=== PATIENT | female | born 1990 | race Caucasian/White ===

== ENCOUNTER 2018-06-11 06:58 | Emergency (ER) | payer OTHER ==
[~2018-06-11] VITALS: Ht 167.6 cm; Wt 49.9 kg
[~2018-06-11 06:58] MED LIST: TRAZ50 PO
[2018-06-11] MEDS ORDERED: REXULTI1 MG PO (07:20)
[2018-06-11] MEDS ORDERED: PRAZ1 PO (07:21)
[2018-06-11] MEDS ORDERED: PRAZ2 PO (07:21)
[2018-06-11] MEDS ORDERED: Robaxin500 MG PO (07:50)
[2018-06-11] MEDS ORDERED: IBUP600 PO (07:50)
[2018-06-11] MEDS ORDERED: LIDO700A20 TOP (07:50)
[2018-06-11] MEDS ORDERED: ACET500 PO (07:50)
== END 2018-06-11 07:57 | disposition home or self-care (01) ==
LOC: ER 06:58
DX: R07.81 Pleurodynia (principal); Z88.2 Allergy status to sulfonamides; W22.8XXA Striking against or struck by other objects, initial encounter
CPT/HCPCS: 71046; 99283-25

== ENCOUNTER 2018-08-05 15:17 | Day surgery (SDC) | payer OTHER ==
[~2018-08-05 15:17] MED LIST changes: +ACET500 PO; +IBUP600 PO; +LIDO700A20 TOP; +PRAZ1 PO; +PRAZ2 PO; +REXULTI1 MG PO; +Robaxin500 MG PO
== END 2018-08-05 22:59 | disposition home or self-care (01) ==
LOC: ATC 15:17
DX: K04.7 Periapical abscess without sinus (principal); Z88.0 Allergy status to penicillin; Z88.2 Allergy status to sulfonamides
CPT/HCPCS: 96365

== ENCOUNTER 2018-08-06 00:22 | Day surgery (SDC) | payer OTHER | END 2018-08-06 16:40 | disposition home or self-care (01) | LOC: ATC 00:22 | DX: K04.7 Periapical abscess without sinus (principal); Z88.0 Allergy status to penicillin | CPT/HCPCS: 96365 ==

== ENCOUNTER 2018-08-07 07:45 | Day surgery (SDC) | payer OTHER | END 2018-08-07 16:51 | disposition home or self-care (01) | LOC: ATC 07:45 | DX: K04.7 Periapical abscess without sinus (principal); F32.9 Major depressive disorder, single episode, unspecified; Z88.0 Allergy status to penicillin; Z79.899 Other long term (current) drug therapy; Z88.2 Allergy status to sulfonamides | CPT/HCPCS: 96365 ==

== ENCOUNTER 2018-08-08 10:01 | Day surgery (SDC) | payer OTHER | END 2018-08-08 10:33 | disposition home or self-care (01) | LOC: ATC 10:01 | DX: K04.7 Periapical abscess without sinus (principal); Z88.0 Allergy status to penicillin; Z79.899 Other long term (current) drug therapy | CPT/HCPCS: 96365 ==

== ENCOUNTER 2019-04-22 20:10 | Emergency (ER) | payer OTHER ==
[~2019-04-22] VITALS: Ht 167.6 cm; Wt 54.4 kg
[2019-04-22 22:51] LABS: BASOPHILS ABSOLUTE AUTO 0.04 K/mm3 (0.00-0.23); BASOPHILS PERCENT AUTO 0 % (0-2); EOSINOPHILS ABSOLUTE AUTO 0.05 K/mm3 (0.00-0.68); EOSINOPHILS PERCENT AUTO 1 % (0-6); Hematocrit 41.8 % (33.0-51.0); Hemoglobin 13.8 g/dL (11.5-16.0); IMMATURE GRAN ABSOLUTE AUTO 0.03 K/mm3 (0.00-0.10); IMMATURE GRAN PERCENT AUTO 0 % (0-1); LYMPHOCYTES ABSOLUTE AUTO 2.91 K/mm3 (0.84-5.20); LYMPHOCYTES PERCENT AUTO 27 % (21-46); MONOCYTES ABSOLUTE AUTO 0.67 K/mm3 (0.16-1.47); MONOCYTES PERCENT AUTO 6 % (4-13); Mean Corpuscular HGB 30.7 pg (26.0-34.0); Mean Corpuscular Volume 93 fL (80-100); Mean Platelet Volume 8.7 fL (9.1-12.4); NEUTROPHILS ABSOLUTE AUTO 6.99 K/mm3 (1.96-9.15); NEUTROPHILS PERCENT AUTO 65 % (41-73); Platelet Count 313 K/mm3 (150-400); RDW Coefficient Variation 12.5 % (11.7-14.2); White Blood Cell Count 10.69 K/mm3 (4.00-11.30)
[2019-04-22 23:13] LABS: Alanine Aminotransfer (ALT/SGP 36 U/L (12-78); Albumin, Blood 3.9 g/dL (3.4-5.0); Alk Phos 94 U/L (50-136); Anion Gap 4 mmol/L (6-16); Aspartate Aminotrans (AST/SGOT 25 U/L (12-37); Bilirubin, Total 0.2 mg/dL (0.1-1.0); Blood Urea Nitrogen 20 mg/dL (8-24); Bun/Creatinine Ratio 26.7 (12.0-20.0); CO2, Blood 28 mmol/L (21-32); Calcium, Blood 9.3 mg/dL (8.5-10.1); Chloride, Blood 109 mmol/L (98-108); Creatinine, Blood 0.75 mg/dL (0.40-1.00); Globulin, Blood 3.8 g/dL (2.2-4.0); Glomerular Filtration Rate >60 (60-); Glucose, Blood 92 mg/dL (70-99); Sodium, Blood 141 mmol/L (136-145); Total Protein, Blood 7.7 g/dL (6.4-8.2); Troponin I <0.015 ng/mL (0.000-0.040)
[2019-04-23] MEDS ORDERED: TRAZ50 PO (00:29)
[2019-04-23] MEDS ORDERED: BENZ100A PO (00:34)
[2019-04-23] MEDS ORDERED: AZIT500 PO (00:34)
[2019-04-23] MEDS ORDERED: MOTRIN IB200 MG PO (00:34)
== END 2019-04-23 00:53 | disposition home or self-care (01) ==
LOC: ER 20:10
PROVIDERS: Physician Assistant
DX: R07.9 Chest pain, unspecified (principal); R05 Cough; Z88.0 Allergy status to penicillin; Z88.2 Allergy status to sulfonamides; Z87.891 Personal history of nicotine dependence
CPT/HCPCS: 36415; 71046; 80053; 84484; 85025; 93005; 93010; 99284-25; A9270-GY

== ENCOUNTER 2020-06-04 06:22 | Emergency (ER) | payer OTHER ==
[~2020-06-04] VITALS: Ht 167.6 cm; Wt 57.1 kg
[~2020-06-04 06:22] MED LIST changes: +AZIT500 PO; +BENZ100A PO; +MOTRIN IB200 MG PO
[2020-06-04] MEDS ORDERED: CLIN300 PO (06:37)
[2020-06-04] MEDS ORDERED: TRAM50 PO (06:37)
[2020-06-04] MEDS ORDERED: PRED20 PO (06:37)
== END 2020-06-04 07:02 | disposition home or self-care (01) ==
LOC: ER 06:22
DX: K04.7 Periapical abscess without sinus (principal); Z87.891 Personal history of nicotine dependence; Z88.8 Allergy status to other drugs, medicaments and biological substances; Z88.2 Allergy status to sulfonamides; Z88.0 Allergy status to penicillin; Z79.899 Other long term (current) drug therapy
CPT/HCPCS: 99283; A9270; J1100

== ENCOUNTER 2020-06-19 11:16 | Emergency (ER) | payer OTHER ==
[~2020-06-19] VITALS: Ht 167.6 cm; Wt 56.7 kg
[~2020-06-19 11:16] MED LIST changes: +CLIN300 PO; +PRED20 PO; +TRAM50 PO
[2020-06-19] MEDS ORDERED: METPRE4DP PO (11:50)
[2020-06-19] MEDS ORDERED: BENADRYL25 MG PO (11:50)
[2020-06-19] MEDS ORDERED: Pepcid20 MG PO (11:50)
== END 2020-06-19 11:57 | disposition home or self-care (01) ==
LOC: ER 11:16
DX: L23.7 Allergic contact dermatitis due to plants, except food (principal); Z88.0 Allergy status to penicillin; Z88.2 Allergy status to sulfonamides; Z79.899 Other long term (current) drug therapy; Z87.891 Personal history of nicotine dependence
CPT/HCPCS: 96372; 99282-25; J1100

== ENCOUNTER 2020-08-12 20:57 | Emergency (ER) | payer OTHER ==
[~2020-08-12] VITALS: Ht 167.6 cm; Wt 59.0 kg
[~2020-08-12 20:57] MED LIST changes: +BENADRYL25 MG PO; +METPRE4DP PO; +Pepcid20 MG PO
[2020-08-12] MEDS ORDERED: CLIN300 PO (23:04)
== END 2020-08-12 23:14 | disposition home or self-care (01) ==
LOC: ER 20:57
DX: K08.89 Other specified disorders of teeth and supporting structures (principal); Z87.891 Personal history of nicotine dependence
CPT/HCPCS: 99282; A9270

== ENCOUNTER → 2022-05-17 | Outpatient (CLI) | payer OTHER | END | disposition home or self-care (01) | LOC: LAB 15:55 → LAB SHORT 15:55 | DX: N39.0 Urinary tract infection, site not specified (principal) | CPT/HCPCS: 87077; 87086; 87186 ==

== ENCOUNTER 2024-05-14 16:20 | Emergency (ER) | payer OTHER ==
[~2024-05-14] VITALS: Ht 167.6 cm; Wt 63.5 kg
[~2024-05-14 16:20] MED LIST changes: +ABILIFY MYCITE5 M2
[2024-05-14 17:00] VITALS: BP 110/73
[2024-05-14] MEDS ORDERED: Ondansetron HCl 2 MG / ML 2ML Vial IV ONE (17:10)
[2024-05-14] MEDS ORDERED: Famotidine 20 MG Tab PO ONE (17:10)
[2024-05-14] MEDS ORDERED: Lidocaine 2% Viscous Soln 15 ML UDC PO ONE (17:10)
[2024-05-14] MEDS ORDERED: Atropine/Scopalam/Hyoscam/PB 5 ML UDC PO ONE (17:10)
[2024-05-14] MEDS ORDERED: NS 1,000 ML IV SCH (17:10)
[2024-05-14] MEDS ORDERED: Mag Hydrox/AL Hydrox/Simeth 30 ML UDC PO ONE (17:10)
[2024-05-14 17:30] LABS: Source, Urine Clean Catch
[2024-05-14 17:35] LABS: Bilirubin, Urine Neg (Neg); Blood, Urine 5+ (Neg); Color, Urine Yellow (P-Yellow); Glucose Qualitative, Urine Neg (Neg); Ketones, Urine Neg (Neg); Leukocyte Esterase, Urine Neg (Neg); Nitrite, Urine Neg (Neg); Protein, Urine Neg (Neg); Urobilinogen, Urine NORM (Normal); pH, Urine 6.5 (5.0-8.0)
[2024-05-14 17:50] LABS: BASOPHILS ABSOLUTE AUTO 0.07 K/mm3 (0.00-0.23); BASOPHILS PERCENT AUTO 1 % (0-2); EOSINOPHILS ABSOLUTE AUTO 0.07 K/mm3 (0.00-0.68); EOSINOPHILS PERCENT AUTO 1 % (0-6); Hematocrit 40.2 % (33.0-51.0); Hemoglobin 13.7 g/dL (11.5-16.0); IMMATURE GRAN ABSOLUTE AUTO 0.01 K/mm3 (0.00-0.10); IMMATURE GRAN PERCENT AUTO 0 % (0-1); LYMPHOCYTES ABSOLUTE AUTO 2.72 K/mm3 (0.84-5.20); LYMPHOCYTES PERCENT AUTO 48 % (21-46); MONOCYTES ABSOLUTE AUTO 0.51 K/mm3 (0.16-1.47); MONOCYTES PERCENT AUTO 9 % (4-13); Mean Corpuscular HGB 31.4 pg (26.0-34.0); Mean Corpuscular HGB Conc 34.1 g/dL (31.5-36.5); Mean Corpuscular Volume 92 fL (80-100); Mean Platelet Volume 8.2 fL (9.1-12.4); NEUTROPHILS PERCENT AUTO 41 % (41-73); Platelet Count 263 K/mm3 (150-400); RDW Coefficient Variation 12.2 % (11.7-14.2); RDW Standard Deviation 41.7 fL (35.1-46.3); Red Blood Cell Count 4.36 M/mm3 (3.80-5.20); White Blood Cell Count 5.68 K/mm3 (4.00-11.30)
[2024-05-14 17:51] LABS: Appearance, Urine Hazy (Clear); White Blood Cells, Urine 0-2 /hpf (0-5)
[2024-05-14 17:52] LABS: Amorphous Light (0-Heavy); Bacteria Mod /hpf; Squamous Epithelial Cells Few /hpf (Few)
[2024-05-14 18:14] LABS: Influenza A, PCR NEGATIVE (NEGATIVE); Influenza B, PCR NEGATIVE (NEGATIVE); Resp Syncytial Virus, PCR NEGATIVE (NEGATIVE); SARS-Cov-2 (COVID-19) PCR, MMC NEGATIVE (NEGATIVE)
[2024-05-14 18:16] LABS: Albumin/Globulin Ratio 1.3 (0.8-1.8); Bilirubin, Direct 0.1 mg/dL (0.0-0.3); Bilirubin, Indirect 0.3 mg/dL (0.1-0.7); Bilirubin, Total 0.4 mg/dL (0.1-1.0); Bun/Creatinine Ratio 4.1 (12.0-20.0); Calcium, Blood 8.9 mg/dL (8.5-10.1); Creatinine, Blood 0.73 mg/dL (0.40-1.00); Globulin, Blood 3.1 g/dL (2.2-4.0); Potassium, Blood 3.5 mmol/L (3.5-5.5); Total Protein, Blood 7.1 g/dL (6.4-8.2)
== END 2024-05-14 18:00 | disposition home or self-care (01) ==
LOC: ER 16:20
PROVIDERS: Student in an Organized Health Care Education/Training Program
DX: R11.2 Nausea with vomiting, unspecified (principal); R19.7 Diarrhea, unspecified; R53.83 Other fatigue
CPT/HCPCS: 0241U; 80048; 80076; 81001; 81025; 83690; 85025; 87086; 99283